=== PATIENT | male | born 1940 | race Caucasian/White ===

== ENCOUNTER → 2020-07-05 | Outpatient (CLI) | payer MEDICARE, OTHER | LOC: LAB FS 10:40 | PROVIDERS: ATTEND Orthopaedic Surgery | DX: Z01.812 Encounter for preprocedural laboratory examination (principal); Z20.822 Contact with and (suspected) exposure to COVID-19 | CPT/HCPCS: 87635 ==

== ENCOUNTER 2020-07-09 17:57 | Emergency (ER) | payer MEDICARE, OTHER ==
[~2020-07-09] VITALS: Ht 172.7 cm; Wt 111.1 kg
--- NOTE | 2020-07-09 18:04 | ED Chest Pain ---
General Chief Complaint: Chest Pain Stated Complaint: CHEST PAIN History of Present Illness Date Seen by Provider: July 09, 2020 Time Seen by Provider: 18:01 Initial Comments 80-year-old male presents with an episode of chest pain. Patient reports he was in his chair doing a crossword puzzle when he had kind of a substernal chest pressure. Lasted for about 1 minutes resolved. He did report any worsening short of breath but some mild chronic shortness of breath. No nausea vomiting diaphoresis. Patient had a knee replacement 2 days ago. Patient has been symptom-free since that happened. chest pain was approximately 30 to 45 minutes ago. Patient with a negative chest stress test just prior to surgery. Allergies and Home Medications Allergies Coded Allergies: No Known Drug Allergies (Unverified , 07/09/20) Patient Home Medication List Home Medication List Reviewed: Yes Review of Systems Review of Systems Constitutional: No chills, No fever Respiratory: Denies Cough, Denies Shortness of Air Cardiovascular: Chest Pain; Denies Irregular Heart Rate, Denies Lightheadedness, Denies Palpitations Genitourinary: No Symptoms Reported Musculoskeletal: see HPI Skin: no symptoms reported Endocrine: No Symptoms Reported Hematologic/Lymphatic: No Symptoms Reported Past Cabbobt-Gastap-Gdhnai Hx Past Med/Social Hx: Reviewed Nursing Past Med/Soc Hx Physical Exam Vital Signs Vital Signs - First Documented 07/09/20 18:02 Temp 36.0 Pulse 51 Resp 14 B/P (MAP) 153/58 (89) Pulse Ox 98 O2 Delivery Room Air Capillary Refill : Height, Weight, BMI Height: '" Weight: lbs. oz. kg; BMI Method: General Appearance: No Apparent Distress, WD/WN Neck: Non Tender Respiratory: Lungs Clear, Normal Breath Sounds Cardiovascular: Regular Rate, Rhythm, No Edema Gastrointestinal: Non Tender, Soft Extremity: Other (Decreased range of motion right knee due to recent surgery, however no signs of infection, incision clean dry and intact) Neurologic/Psychiatric: Alert, Oriented x3, No Motor/Sensory Deficits, Normal Mood/Affect, assurance senior manager II-XII Norm as Tested Skin: Other (Surgery incision, clean dry) Progress/Results/Core Measures Results/Orders Lab Results Laboratory Tests Test 07/09/20 18:00 07/09/20 20:19 Range/Units White Blood Count 17.6 H 4.3-11.0 10^3/uL Red Blood Count 4.19 L 4.35-5.85 10^6/uL Hemoglobin 12.5 L 13.3-17.7 G/DL Hematocrit 38 L 40-54 % Mean Corpuscular Volume 91 80-99 FL Mean Corpuscular Hemoglobin 30 25-34 PG Mean Corpuscular Hemoglobin Concent 33 32-36 G/DL Red Cell Distribution Width 13.7 10.0-14.5 % Platelet Count 243 130-400 10^3/uL Mean Platelet Volume 10.7 H 7.4-10.4 FL Immature Granulocyte % (Auto) 1 % Neutrophils (%) (Auto) 73 42-75 % Lymphocytes (%) (Auto) 17 12-44 % Monocytes (%) (Auto) 10 0-12 % Eosinophils (%) (Auto) 0 0-10 % Basophils (%) (Auto) 0 0-10 % Neutrophils # (Auto) 12.8 H 1.8-7.8 X 10^3 Lymphocytes # (Auto) 2.9 1.0-4.0 X 10^3 Monocytes # (Auto) 1.7 H 0.0-1.0 X 10^3 Eosinophils # (Auto) 0.0 0.0-0.3 10^3/uL Basophils # (Auto) 0.0 0.0-0.1 10^3/uL Immature Granulocyte # (Auto) 0.1 0.0-0.1 10^3/uL Neutrophils % (Manual) 82 % Lymphocytes % (Manual) 13 % Monocytes % (Manual) 5 % Sodium Level 140 135-145 MMOL/L Potassium Level 4.2 3.6-5.0 MMOL/L Chloride Level 103 98-107 MMOL/L Carbon Dioxide Level 28 21-32 MMOL/L Anion Gap 9 5-14 MMOL/L Blood Urea Nitrogen 22 H 7-18 MG/DL Creatinine 1.03 0.60-1.30 MG/DL Estimat Glomerular Filtration Rate > 60 BUN/Creatinine Ratio 21 Glucose Level 140 H 70-105 MG/DL Calcium Level 9.0 8.5-10.1 MG/DL Corrected Calcium 9.2 8.5-10.1 MG/DL Magnesium Level 2.0 1.6-2.4 MG/DL Total Bilirubin 0.2 0.1-1.0 MG/DL Aspartate Amino Transf (AST/SGOT) 45 H 5-34 U/L Alanine Aminotransferase (ALT/SGPT) 19 0-55 U/L Alkaline Phosphatase 63 40-136 U/L Myoglobin 317.0 H 10.0-92.0 NG/ML Troponin I < 0.30 < 0.30 <0.30 NG/ML Total Protein 6.3 L 6.4-8.2 GM/DL Albumin 3.8 3.2-4.5 GM/DL My Orders Orders - SANTOS,EVA L DO Cbc With Automated Diff (07/09/20 18:04) Magnesium (07/09/20 18:04) Chest 1 View Ap/Pa Only (07/09/20 18:04) Ekg Tracing (07/09/20 18:04) Comprehensive Metabolic Panel (07/09/20 18:04) Myoglobin Serum (07/09/20 18:04) Monitor-Rhythm Ecg Trace Only (07/09/20 18:04) Ed Iv/Invasive Line Start (07/09/20 18:04) Troponin I Fs (07/09/20 18:04) Manual Differential (07/09/20 18:00) Troponin I Fs (07/09/20 19:47) Vital Signs/I&O 07/09/20 07/09/20 18:02 18:07 Temp 36.0 Pulse 51 Resp 14 B/P (MAP) 153/58 (89) Pulse Ox 98 O2 Delivery Room Air Room Air Progress Progress Note : Progress Note Patient with no further chest pain besides a brief episode that he had. Patient with 2 - troponins, a recent negative stress test. Symptoms do not seem cardiac in nature. Patient heart rate is in the 50s, his O2 saturations is in the mid upper 90s. He has no posterior calf tenderness that would be indicated of of a potential blood clot. I discussed with him that if it returns or if he develops worsening shortness of breath or more frequent shortness of breath he should follow-up with his primary care provider and be further evaluated. Patient stable and discharged Initial ECG Impression Date: July 09, 2020 Initial ECG Impression Time: 17:58 Initial ECG Rhythm: Normal Sinus Initial ECG Intervals: LA (218) Initial ECG Impression: Nonspecific Changes Comment Sinus rhythm, heart rate 53, slight increase in LA interval at 218 ms, nonspecific ST changes. Diagnostic Imaging Diagonstic Imaging: Xray Plain Films/CT/US/NM/MRI: chest Comments Date of Exam:07/09/20 CHEST 1 VIEW AP/PA ONLY INDICATION: Chest pain. COMPARISON: None available. TECHNIQUE: Single frontal radiograph of the chest dated July 09, 2020. FINDINGS: The cardiac silhouette is within normal limits in size. No significant pulmonary vascular congestion. Mild elevation of the left hemidiaphragm. 6 mm nodular density is identified overlying the right lung base. The lungs are otherwise clear. No significant pleural effusion. No pneumothorax. No acute osseous abnormality. IMPRESSION: 1. 6 mm nodular density overlying the right lung base. This is indeterminate. This could relate to a calcified granuloma or pulmonary nodule. Alternately, this could relate to superposition of structures or an overlying sclerotic osseous lesion. Comparison to prior imaging is recommended. If no prior imaging is available to demonstrate greater than 2 years of stability for this nodular density, then a nonemergent CT of the chest would be recommended. 2. Mild elevation of the left hemidiaphragm. Chronicity is Reviewed: Reviewed by Me, Reviewed/Discussed Departure Impression Primary Impression: Chest pain Qualified Codes: R07.9 - Chest pain, unspecified Disposition: HOME, SELF-CARE Condition: Stable Departure-Patient Inst. Referrals: CHRISTIANE RODRIGUEZ MD (PCP/Family) Primary Care Physician Patient Instructions: Chest Pain (DC) Add. Discharge Instructions: Follow-up with your primary care provider for further evaluation Return to the ER as needed All discharge instructions reviewed with patient and/or family. Voiced understanding. EVA SANTOS DO July 09, 2020 18:04
[2020-07-09 18:10] LABS: WHITE BLOOD COUNT 17.6 10^3/uL (4.3-11.0)
[2020-07-09 18:11] LABS: BASOPHILS % (AUTO) 0 % (0-10); EOSINOPHILS % (AUTO) 0 % (0-10); HEMATOCRIT 38 % (40-54); HEMOGLOBIN 12.5 G/DL (13.3-17.7); LYMPHOCYTES # (AUTO) 2.9 X 10^3 (1.0-4.0); LYMPHOCYTES % (AUTO) 17 % (12-44); MEAN CORPUSCULAR HEMOGLOBIN 30 PG (25-34); MEAN CORPUSCULAR HGB CONC 33 G/DL (32-36); MEAN CORPUSCULAR VOLUME 91 FL (80-99); MEAN PLATELET VOLUME 10.7 FL (7.4-10.4); MONOCYTES # (AUTO) 1.7 X 10^3 (0.0-1.0); MONOCYTES % (AUTO) 10 % (0-12); NEUTROPHILS # (AUTO) 12.8 X 10^3 (1.8-7.8); NEUTROPHILS % (AUTO) 73 % (42-75); PLATELET COUNT 243 10^3/uL (130-400)
[2020-07-09 18:26] LABS: ALANINE AMINOTRANSFERASE 19 U/L (0-55); ALKALINE PHOSPHATASE 63 U/L (40-136); BILIRUBIN,TOTAL 0.2 MG/DL (0.1-1.0); BUN/CREATININE RATIO 21; CARBON DIOXIDE 28 MMOL/L (21-32); CHLORIDE 103 MMOL/L (98-107); CREATININE SERUM 1.03 MG/DL (0.60-1.30); GFR ESTIMATED > 60; GLUCOSE 140 MG/DL (70-105); POTASSIUM 4.2 MMOL/L (3.6-5.0); SODIUM 140 MMOL/L (135-145)
[2020-07-09 18:27] LABS: ALBUMIN 3.8 GM/DL (3.2-4.5); TOTAL PROTEIN 6.3 GM/DL (6.4-8.2)
--- NOTE | 2020-07-09 18:32 | Diagnostic Imaging Report ---
INDICATION: Chest pain. COMPARISON: None available. TECHNIQUE: Single frontal radiograph of the chest dated July 09, 2020. FINDINGS: The cardiac silhouette is within normal limits in size. No significant pulmonary vascular congestion. Mild elevation of the left hemidiaphragm. 6 mm nodular density is identified overlying the right lung base. The lungs are otherwise clear. No significant pleural effusion. No pneumothorax. No acute osseous abnormality. IMPRESSION: 1. 6 mm nodular density overlying the right lung base. This is indeterminate. This could relate to a calcified granuloma or pulmonary nodule. Alternately, this could relate to superposition of structures or an overlying sclerotic osseous lesion. Comparison to prior imaging is recommended. If no prior imaging is available to demonstrate greater than 2 years of stability for this nodular density, then a nonemergent CT of the chest would be recommended. 2. Mild elevation of the left hemidiaphragm. Chronicity is uncertain. Dictated by: Dictated on workstation # [id number]
[2020-07-09 18:35] LABS: LYMPHOCYTES % (MANUAL) 13 %; MONOCYTES % (MANUAL) 5 %; NEUTROPHILS % (MANUAL) 82 %
[2020-07-09 21:03] VITALS: BP 106/37
== END 2020-07-09 21:03 | disposition home or self-care (01) ==
LOC: EDUNIT# 17:57 → ER FS 17:57
DX: R07.9 Chest pain, unspecified (principal)
CPT/HCPCS: 36415; 71045; 80053; 83735; 83874; 84484; 85007; 85027; 93005; 93041